=== PATIENT | male | born 1980 | race Caucasian/White ===

== ENCOUNTER 2018-06-21 15:29 | Emergency (ER) | payer BC ==
--- NOTE | 2018-06-21 16:03 | EDM.PDOC ---
ED HPI GENERAL MEDICAL PROBLEM - General Chief Complaint: Lower Extremity Injury/Pain Stated Complaint: KNEE INJURY Time Seen by Provider: 06/21/18 15:30 Source of Information: Reports: Patient History Limitations: Reports: No Limitations - History of Present Illness INITIAL COMMENTS - FREE TEXT/NARRATIVE: HISTORY AND PHYSICAL: History of present illness: Patient is a 38-year-old male presents to the ED today with concern of right knee pain/injury that occurred an hour prior to arrival to the ED. Patient states he was walking when his knee twisted slightly and since then he has had 9 out of 10 pain. He denies hitting his head or loss of consciousness. He denies any prior injury to the knee. He has not taken anything [id number] for her symptoms. Patient denies fever, chills, chest pain, shortness of breath, or cough. Denies headache, neck stiff ness, change in vision, syncope, or near syncope. Denies nausea, vomiting, abdominal pain, diarrhea, constipation, or dysuria. Has not noted any blood in urine or stool. Patient has been eating and drinking appropriately. Review of systems: As per history of present illness and below otherwise all systems reviewed and negative. Past medical history: As per history of present illness and as reviewed below otherwise noncontributory. Surgical history: As per history of present illness and as reviewed below otherwise noncontributory. Social history: See social history for further information Family history: As per history of present illness and as reviewed below otherwise noncontributory. Physical exam: General: Patient is alert, oriented, and in no acute distress. Patient sitting comfortably on exam table. HEENT: Atraumatic, normocephalic, pupils equal and reactive bilaterally, negative for conjunctival pallor or scleral icterus, mucous membranes moist, TMs normal bilaterally, throat clear, neck supple, nontender, trachea midline. No drooling or trismus noted. No meningeal signs. No hot potato voice noted. Lungs: Clear to auscultation, breath sounds equal bilaterally, chest nontender. Heart: S1S2, regular rate and rhythm without overt murmur Abdomen: Soft, nondistended, nontender. Negative for masses or hepatosplenomegaly. Negative for costovertebral tenderness. Pelvis: Stable nontender. Genitourinary: Deferred. Rectal: Deferred. Skin: Intact, warm, dry. No lesions or rashes noted. Extremities: Negative for cords or calf pain. Neurovascular unremarkable. Exam is limited due to pain. Range of motion of knee is limited due to pain. Right knee is moderately edematous, more at the medial join line. Dorsalis pedis and posterior tibial pulses are grossly intact extremity. Capillary refill less than 2 seconds. Neuro: Awake, alert, oriented. Cranial nerves II through XII unremarkable. Cerebellum unremarkable. Motor and sensory unremarkable throughout. Exam nonfocal. Notes: Dr. Castelan verbally involved in patients care. Do not have the capability of an orthopedic provider through our hospital today. Call made to [facility] electronic system engineer orthopedic surgeon, Dr. Ayala. Discussed patient in detail with Dr. Ayala. Per Dr. Ayala, requests knee immobilizer and nonweightbearing and to follow up with Dr. Ayala Monday or Monday next week. Information for Dr. Ayala's clinic provided to patient. Will also generate referral to our orthopedic provider. Voices understanding and is agreeable to plan of care. Denies any further questions or concerns at this time. Diagnostics: Knee XR Therapeutics: Toradol, Crutches, Knee immobilizer Prescription: [place] #20 Impression: Mildly displaced intra-articular tibial plateau fracture Plan: 1. Take medication as prescribed for moderate to severe pain. You can alternate ibuprofen and Tylenol as directed for mild to moderate pain. Remain not weight bearing as discussed. 2. Rest, ice, elevate the affected extremity. You can apply ice 15 minutes on, 15 minutes off. 3. Follow up with the Orthopedic provider as discussed. Return to the ED as needed and as discussed. Definitive disposition and diagnosis as appropriate pending reevaluation and review of above. Right Knee Pain Score (Numeric/FACES): 9 - Related Data Allergies Allergy/AdvReac Type Severity Reaction Status Date / Time No Known Allergies Allergy Verified 06/21/18 15:47 Home Meds: Home Meds Citalopram Hydrobromide [Celexa] 10 mg PO DAILY 06/21/18 [History] Past Medical History - Past Health History Medical/Surgical History: Denies Medical/Surgical History - Past Surgical History Musculoskeletal Surgical History: Reports: Other (See Below) Other Musculoskeletal Surgeries/Procedures:: right leg surgery Social & Family History - Family History Family Medical History: Noncontributory - Tobacco Use Smoking Status *Q: Never Smoker - Recreational Drug Use Recreational Drug Use: No Review of Systems - Review of Systems Review Of Systems: ROS reveals no pertinent complaints other than HPI. ED EXAM, GENERAL - Physical Exam Exam: See Below (See dictation) Course - Vital Signs Last Recorded V/S: Last Vital Signs Temp 35.7 C 06/21/18 15:45 Pulse 65 06/21/18 15:45 Resp 18 06/21/18 15:45 BP 145/83 H 06/21/18 15:45 Pulse Ox 98 06/21/18 15:45 - Orders/Labs/Meds Meds: Medications Discontinued Medications Generic Name Dose Route Start Last Admin Trade Name Freq PRN Reason Stop Dose Admin Ketorolac Tromethamine 60 mg 06/21/18 16:04 06/21/18 16:14 Toradol IM 06/21/18 16:05 60 mg ONETIME ONE Administration Departure - Departure Time of Disposition: 16:55 Disposition: Home, Self-Care 01 Clinical Impression: Tibial plateau fracture Qualifiers: Encounter type: initial encounter Fracture type: closed Laterality: right Qualified Code(s): S82.141A - Displaced bicondylar fracture of right tibia, initial encounter for closed fracture - Discharge Information Referrals: Carlos Galicia MD [Primary Care Provider] - Forms: ED Department Discharge Additional Instructions: The following information is given to patients seen in the emergency department who are being discharged to home. This information is to outline your options for follow-up care. We provide all patients seen in our emergency department with a follow-up referral. The need for follow-up, as well as the timing and circumstances, are variable depending upon the specifics of your emergency department visit. If you don't have a primary care physician on staff, we will provide you with a referral. We always advise you to contact your personal physician following an emergency department visit to inform them of the circumstance of the visit and for follow-up with them and/or the need for any referrals to a consulting specialist. The emergency department will also refer you to a specialist when appropriate. This referral assures that you have the opportunity for follow-up care with a specialist. All of these measure are taken in an effort to provide you with optimal care, which includes your follow-up. Under all circumstances we always encourage you to contact your private physician who remains a resource for coordinating your care. When calling for follow-up care, please make the office aware that this follow-up is from your recent emergency room visit. If for any reason you are refused follow-up, please contact the [facility] Emergency Department at and asked to speak to the emergency department charge nurse. [facility] [address] [place] [address] [facility] [address] [place] [id number] [facility] [address] [place] [address], [address] [place] [address] [facility]-Dr. Ayala [address] [place] [address] 1. Take medication as prescribed for moderate to severe pain. You can alternate ibuprofen and Tylenol as directed for mild to moderate pain. Remain not weight bearing as discussed. 2. Rest, ice, elevate the affected extremity. You can apply ice 15 minutes on, 15 minutes off. 3. Follow up with the Orthopedic provider as discussed. Return to the ED as needed and as discussed.
[2018-06-21] MEDS ORDERED: Ketorolac 60 MG/2 ML SDV IM ONE (16:04)
--- NOTE | 2018-06-21 16:38 | CR ---
EXAMINATION: Right knee HISTORY: Injury COMPARISON: None TECHNIQUE: 3 views FINDINGS: There is a vertical mildly displaced intra-articular lateral tibial plateau fracture. There is a small to moderate lipoma hemarthrosis. The remaining osseous structures and joint spaces appear grossly preserved. Bone mineralization is otherwise normal. IMPRESSION: Mildly displaced vertical intra-articular lateral tibial plateau fracture.
== END 2018-06-21 17:19 | disposition home or self-care (01) ==
LOC: MW.ED 15:29
DX: S82.141A Displaced bicondylar fracture of right tibia, initial encounter for closed fracture (principal); Z79.899 Other long term (current) drug therapy; X50.9XXA Other and unspecified overexertion or strenuous movements or postures, initial encounter
CPT/HCPCS: 73562; 96372; 99283; J1885

== ENCOUNTER 2018-06-25 11:58 | Day surgery (SDC) | payer BC ==
[~2018-06-25 11:58] MED LIST: Lactated Ringers 1,000 ML IV SCH; ceFAZolin 2 GM in Premix Bag 1 BAG IV SCH
--- NOTE | 2018-06-25 12:53 | PCM.PREANE ---
Preanesthetic Assessment - Anesthesia/Transfusion/Family Hx Anesthesia History: Prior Anesthesia Without Reaction Family History of Anesthesia Reaction: No Transfusion History: No Prior Transfusion(s) Intubation History: Unknown - Review of Systems General: No Symptoms Pulmonary: No Symptoms Cardiovascular: No Symptoms Gastrointestinal: No Symptoms Neurological: No Symptoms Other: Reports: None - Physical Assessment O2 Sat by Pulse Oximetry: 96 Respiratory Rate: 18 Vital Signs: Last Vital Signs Temp 36.6 C 06/25/18 12:15 Pulse 75 06/25/18 12:15 Resp 18 06/25/18 12:15 BP 139/91 H 06/25/18 12:15 Pulse Ox 96 06/25/18 12:15 Height: 1.88 m Weight: 81.647 kg ASA Class: 2 Mental Status: Alert & Oriented x3 Airway Class: Mallampati = 2 Dentition: Reports: Normal Dentition, [place](s) (x1 upper left) Thyro-Mental Finger Breadths: 3 Mouth Opening Finger Breadths: 3 ROM/Head Extension: Full Lungs: Clear to Auscultation, Normal Respiratory Effort Cardiovascular: Regular Rate, Regular Rhythm - Allergies Allergies/Adverse Reactions: Allergies Allergy/AdvReac Type Severity Reaction Status Date / Time No Known Allergies Allergy Verified 06/22/18 16:22 - Blood Blood Available: No - Anesthesia Plan Pre-Op Medication Ordered: None - Acknowledgements Anesthesia Type Planned: General Anesthesia Pt an Appropriate Candidate for the Planned Anesthesia: Yes Alternatives and Risks of Anesthesia Discussed w Pt/Guardian: Yes Pt/Guardian Understands and Agrees with Anesthesia Plan: Yes PreAnesthesia Questionnaire - Past Health History Medical/Surgical History: Denies Medical/Surgical History HEENT History: Reports: Other (See Below) Other HEENT History: wears glasses/contacts, has upper incisor dental implant Gastrointestinal History: Reports: Other (See Below) Other Gastrointestinal History: occasional heartburn- takes TUMS Musculoskeletal History: Reports: Fracture, Neck Pain, Chronic Other Musculoskeletal History: hx of fx vertebrate in neck, hx of open fx of right leg. Rt. tibial plateau fx. at present time. Neurological History: Reports: Headaches, Chronic Other Neuro History: due to "floating fragments" in neck Psychiatric History: Reports: Anxiety - Past Surgical History Head Surgeries/Procedures: Reports: None Musculoskeletal Surgical History: Reports: Other (See Below) Other Musculoskeletal Surgeries/Procedures:: debridement of open fx of right leg (no hardware) - 17 years ago - SUBSTANCE USE Smoking Status *Q: Former Smoker Tobacco Use Within Last Twelve Months: No Recreational Drug Use History: No - HOME MEDS Home Medications: Home Meds Citalopram Hydrobromide [Celexa] 20 mg PO DAILY 06/21/18 [History] Ibuprofen 800 mg PO ASDIRECTED PRN 06/22/18 [History] oxyCODONE HCl/Acetaminophen [Oxycodone-Acetaminophen 5-325] 1 - 2 tab PO Q4H PRN 06/22/18 [History] - CURRENT (IN HOUSE) MEDS Current Meds: Current Medications Cefazolin Sodium/Dextrose 2 gm (/ Premix) 50 mls @ 100 mls/hr IV ONCALL MARSHA Lactated Ringer's (Ringers, Lactated) 1,000 mls @ 100 mls/hr IV ASDIRECTED [facility] Last Admin: 06/25/18 12:20 Dose: 100 mls/hr Oxycodone/Acetaminophen (Percocet 325-5 Mg) 1 - 2 tab PO Q4H PRN PRN Reason: Pain
[2018-06-25] MEDS ORDERED: Bupivacaine 0.5% 30 ML SDV ONE (13:44)
[2018-06-25] MEDS ORDERED: Midazolam 1 MG/ML 2 ML SDV ONE (13:45)
[2018-06-25] MEDS ORDERED: fentaNYL 250 MCG/5 ML SDV ONE (13:45)
[2018-06-25] MEDS ORDERED: Propofol 200 MG/20 ML SDV ONE (13:45)
[2018-06-25] MEDS ORDERED: Rocuronium 100 MG/10 ML Syringe ONE (14:31)
[2018-06-25] MEDS ORDERED: Neostigmine Methylsulfate 1 MG/ML 5 ML Syringe ONE (14:31)
[2018-06-25] MEDS ORDERED: Glycopyrrolate 0.2 MG/ML SDV ONE (14:31)
[2018-06-25] MEDS ORDERED: HYDROmorphone 2 MG/ML Syringe ONE ×2 (15:15→16:54)
[2018-06-25] MEDS ORDERED: Sodium Chloride 0.9% 10 ML Syringe FLUSH PRN (16:26)
[2018-06-25] MEDS ORDERED: Ondansetron 4 MG/2 ML SDV IVPUSH PRN (16:26)
[2018-06-25] MEDS ORDERED: Sodium Chloride 0.9% 2.5 ML Syringe FLUSH PRN (16:26)
[2018-06-25] MEDS ORDERED: HYDROmorphone 1 MG/ML Syringe IVPUSH PRN (16:26)
[2018-06-25] MEDS ORDERED: Lactated Ringers 1,000 ML IV SCH (16:30)
[2018-06-25] MEDS ORDERED: Acetaminophen/oxyCODONE 325-5 MG Tab PO PRN (16:35)
--- NOTE | 2018-06-25 16:40 | PCM.OPNOTE ---
- General Post-Op/Procedure Note Date of Surgery/Procedure: 06/25/18 Operative Procedure(s): ORIF right tibia plateau Post-Op Diagnosis: R lateral tibial plateau fracture Anesthesia Technique: General ET Tube Primary Surgeon: Marii Dacosta Church Secretary: Shayy Vital Church Secretary: Kasia Zaragoza in mLs: 10 Condition: Good Free Text/Narrative:: tt=90 min #[id number]
[2018-06-25] MEDS ORDERED: Aluminum Hydroxide/Magnesium Hydroxide/Simethicone Susp 30 ML Cup PO PRN (16:50)
[2018-06-25] MEDS ORDERED: diphenhydrAMINE 25 MG Cap PO PRN (16:50)
[2018-06-25] MEDS: fentaNYL 100 MCG/2 ML SDV IVPUSH PRN ×2 (16:57→17:06)
[2018-06-25] MEDS: HYDROmorphone 2 MG/ML SDV IVPUSH ONE ×2 (17:02→17:14)
--- NOTE | 2018-06-25 17:41 | PCM.POSTAN ---
POST ANESTHESIA ASSESSMENT - MENTAL STATUS Mental Status: Alert, Oriented - VITAL SIGNS Pulse Rate: 88 SaO2: 98 Resp Rate: 15 Blood Pressure: 144/78 - RESPIRATORY Respiratory Status: Respiratory Rate WNL, Airway Patent, O2 Saturation Stable - CARDIOVASCULAR CV Status: Pulse Rate WNL, Blood Pressure Stable - GASTROINTESTINAL GI Status: No Symptoms - POST OP HYDRATION Hydration Status: Adequate & Stable
[2018-06-25] MEDS: Acetaminophen/oxyCODONE 325-5 MG Tab PO PRN (18:52)
[2018-06-25] MEDS: Ketorolac 30 MG/ML SDV IVPUSH SCH ×2 (18:57→22:28)
[2018-06-25] MEDS: ceFAZolin 2 GM in Premix Bag 1 BAG IV SCH (22:31)
--- NOTE | 2018-06-25 23:52 | OR ---
SURGEON: Marii Dacosta MD DATE OF PROCEDURE: 06/25/2018 PREOPERATIVE DIAGNOSIS: Right lateral tibial plateau fracture, split depression. POSTOPERATIVE DIAGNOSIS: Right lateral tibial plateau fracture, split depression. PROCEDURE: Open reduction and internal fixation, right lateral tibial plateau fracture. ASSISTANTS: LEXUS Aponte and Kasia Zaragoza PA-C. REASON AND ROLE FOR ASSISTANTS: Retraction, prepping, draping, positioning, and closure assistance. ANESTHESIA: General. ESTIMATED BLOOD LOSS: 10 mL. TOURNIQUET TIME: 90 minutes. COMPLICATIONS: None. DVT PROPHYLAXIS: PAS boot to the nonoperative leg. IMPLANTS USED: Linh 3-hole stainless steel proximal tibia locking plate with combination of 3.5 mm locking and nonlocking screws. BRIEF HISTORY: Andreas is a 38-year-old male who sustained a fall from ground height. X-rays in the emergency room showed a split depression fracture of the right lateral tibial plateau. He was evaluated in clinic. A CT scan was obtained. Due to the amount of depression and unstable nature of the injury, I did recommend surgical treatment. Risks and goals of the procedure were discussed with the patient and were documented preoperatively. He agreed to proceed. DESCRIPTION OF PROCEDURE: The patient was properly identified and brought to the operating room. He was transferred from the OR cart and placed on the operating room table in supine position. General anesthesia was administered. After adequate anesthesia was obtained, a well-padded tourniquet was applied to the right lower extremity. The right lower extremity was then prepped in standard fashion using ChloraPrep solution. It was then sterilely draped. A time-out was performed to ensure correct site and procedure. Preoperative antibiotics were given. The surgical site had been marked preoperatively. An Esmarch was used to exsanguinate the right lower extremity and the tourniquet was inflated to 250 mmHg. An incision was made over the lateral aspect of the proximal tibia in a hockey- stick type fashion just inferior to the joint line. Subcutaneous tissues were incised along with the fascia. The fracture was identified in the proximal tibia. There was mild comminution at the fracture site and the patella tendon attachment appeared intact. I did elevate the lateral meniscus from the bone. This was tagged with 0 Ethibond suture. A large hemarthrosis was evacuated. The knee was then copiously irrigated with saline solution. A quarter-inch osteotome was then used to make a small window at the base of the lateral fragment. A bone tamp was then introduced into this window. A mallet was then used to advance the tamp toward the articular surface. This was performed using direct C-arm imaging. I was able to bring the articular pieces proximally. To backfill the void, I did use 15 mL of crushed cancellous chips. Once there was adequate congregation of the joint surface, I elected to proceed with placement of the plate. The lateral fragment had shifted slightly inferiorly. A pointed bone pusher was then used to elevate the lateral fragment. This was held in a reduced position as a K-wire was passed proximally. This provided good provisional fixation. The plate was then placed along the lateral aspect of the tibia. It contoured nicely to the bone. An additional K-wire was passed through the plate for provisional fixation. Two locking screws were then placed proximally. A nonlocking screw was placed distally. This provided good fixation of the fracture and the joint surface appeared to be adequately restored. I was able to use a [place] through the lateral window to the joint at the point where the meniscus was elevated. I was able to palpate the joint surface. The remainder of the screws were placed into the plate. I then elected to use 3 mL of HydroSet to provide additional bone healing properties. The HydroSet syringe was placed into the metaphyseal void and 3 mL were injected. The wound was then copiously irrigated with saline solution along with the knee. Tourniquet was then deflated. No excess bleeding was noted. The lateral meniscus was attached to the plate using a suture. The fascial layer was then loosely reapproximated using 0 Vicryl. Subcutaneous tissues were closed with 2-0 Vicryl and the skin was closed with matt. Xeroform gauze was placed over the wound and a bulky dressing was applied. He was then placed back into his knee immobilizer. He was awakened from his anesthetic and transferred back to the operating room cart. He was brought to the recovery room in stable condition. All needle and sponge counts were correct. KHADIJAH / RABIA /[id number]
[2018-06-26] MEDS: Ketorolac 30 MG/ML SDV IVPUSH SCH (04:13)
[2018-06-26] MEDS: ceFAZolin 2 GM in Premix Bag 1 BAG IV SCH (06:27)
[2018-06-26] MEDS: Acetaminophen/oxyCODONE 325-5 MG Tab PO PRN (06:32)
--- NOTE | 2018-06-26 08:37 | PCM.SURGPN ---
- General Info Date of Service: 06/26/18 (0730) Date of Surgery/Procedure: 06/25/18 POD#: 1 Post-Op Diagnosis: s/p ORIF RIGHT lateral tibial plateau Admission Diagnosis/Problem: Tibial plateau fracture, right Functional Status: Reports: Pain Controlled, Tolerating Diet, Urinating - Review of Systems General: Reports: No Symptoms. Denies: Fever HEENT: Reports: No Symptoms Pulmonary: Reports: No Symptoms. Denies: Shortness of Breath Cardiovascular: Reports: No Symptoms. Denies: Chest Pain Gastrointestinal: Reports: No Symptoms. Denies: Nausea, Vomiting Musculoskeletal: Reports: Leg Pain (post surgical pain) Skin: Reports: No Symptoms Neurological: Reports: No Symptoms. Denies: Trouble Speaking Psychiatric: Reports: No Symptoms Systems Review Comment:: Reports doing well overall. Rested comfortably overnight. No N/V. Tolerated supper last evening without N/V. Voiding. Pain controlled with Percocet, and had dose of dilaudid before HS. Has utilized [facility] ice therapy overnight. Denies numbness/tingling to RLE. - Patient Data Vitals - Most Recent: Last Vital Signs Temp 36.9 C 06/26/18 07:00 Pulse 70 06/26/18 07:00 Resp 16 06/26/18 07:00 BP 127/78 06/26/18 07:00 Pulse Ox 97 06/26/18 07:00 Weight - Most Recent: 81.647 kg I&O - Last 24 Hours: Intake & Output 06/25/18 06/26/18 06/26/18 22:59 06:59 14:59 Intake Total 2049 1692 Output Total 550 Balance 2049 1142 Med Orders - Current: Current Medications Al Hydroxide/Mg Hydroxide (Mag-Al Plus) 30 ml PO Q4H PRN PRN Reason: Indigestion Citalopram Hydrobromide (Celexa) 20 mg PO DAILY MARSHA Diphenhydramine HCl (Benadryl) 25 - 50 mg PO Q6H PRN PRN Reason: Itching Hydromorphone HCl (Dilaudid) 0.5 - 1 mg IVPUSH Q3H PRN PRN Reason: Pain Last Admin: 06/25/18 21:49 Dose: 1 mg Lactated Ringer's (Ringers, Lactated) 1,000 mls @ 100 mls/hr IV ASDIRECTED MARSHA Last Admin: 06/25/18 18:58 Dose: 100 mls/hr Ondansetron HCl (Zofran) 4 mg IVPUSH Q6H PRN PRN Reason: Nausea/Vomiting Oxycodone/Acetaminophen (Percocet 325-5 Mg) 1 - 2 tab PO Q4H PRN PRN Reason: Pain Last Admin: 06/26/18 06:32 Dose: 2 tab Oxycodone/Acetaminophen (Percocet 325-5 Mg) 1 - 2 tab PO Q4H PRN PRN Reason: Pain Sodium Chloride (Saline Flush) 10 ml FLUSH ASDIRECTED PRN PRN Reason: Keep Vein Open Sodium Chloride (Saline Flush) 2.5 ml FLUSH ASDIRECTED PRN PRN Reason: Keep Vein Open Discontinued Medications Bupivacaine HCl (Marcaine 0.5%) Confirm Administered Dose 30 ml .ROUTE .STK-MED ONE Stop: 06/25/18 13:45 Fentanyl (Sublimaze) Confirm Administered Dose 250 mcg .ROUTE .STK-MED ONE Stop: 06/25/18 13:46 Fentanyl (Sublimaze) 50 mcg IVPUSH Q5M PRN PRN Reason: Pain (severe 7-10) Stop: 06/26/18 14:34 Last Admin: 06/25/18 17:06 Dose: 50 mcg Glycopyrrolate (Robinul) Confirm Administered Dose 0.4 mg .ROUTE .STK-MED ONE Stop: 06/25/18 14:32 Hydromorphone HCl (Dilaudid) 2 mg IVPUSH ONETIME ONE Stop: 06/25/18 14:30 Last Admin: 06/25/18 17:14 Dose: 1 mg Hydromorphone HCl (Dilaudid) Confirm Administered Dose 2 mg .ROUTE .STK-MED ONE Stop: 06/25/18 15:16 Hydromorphone HCl (Dilaudid) Confirm Administered Dose 2 mg .ROUTE .STK-MED ONE Stop: 06/25/18 16:55 Last Admin: 06/25/18 18:06 Dose: Not Given Cefazolin Sodium/Dextrose 2 gm (/ Premix) 50 mls @ 100 mls/hr IV ONCALL MARSHA Lactated Ringer's (Ringers, Lactated) 1,000 mls @ 100 mls/hr IV ASDIRECTED [facility] Last Admin: 06/25/18 12:20 Dose: 100 mls/hr Lidocaine HCl (Xylocaine-Mpf 1%) Confirm Administered Dose 5 mls @ as directed .ROUTE .STK-MED ONE Stop: 06/25/18 14:32 Cefazolin Sodium/Dextrose 2 gm (/ Premix) 50 mls @ 100 mls/hr IV Q8H [facility] Stop: 06/26/18 07:29 Last Admin: 06/26/18 06:27 Dose: 100 mls/hr Ketorolac Tromethamine (Toradol) 30 mg IVPUSH Q6H [facility] Stop: 06/26/18 05:00 Last Admin: 06/26/18 04:13 Dose: 30 mg Midazolam HCl (Versed 1 Mg/Ml) Confirm Administered Dose 2 mg .ROUTE .STK-MED ONE Stop: 06/25/18 13:46 Neostigmine Methylsulfate (Neostigmine) Confirm Administered Dose 5 mg .ROUTE .STK-MED ONE Stop: 06/25/18 14:32 Propofol (Diprivan 20 Ml) Confirm Administered Dose 200 mg .ROUTE .STK-MED ONE Stop: 06/25/18 13:46 Rocuronium [place] (Zemuron) Confirm Administered Dose 100 mg .ROUTE .STK-MED ONE Stop: 06/25/18 14:32 - Exam Wound/Incisions: Dressing Dry and Intact, No Drainage General: Alert, Oriented, Cooperative, No Acute Distress HEENT: Pupils Equal Lungs: Normal Respiratory Effort Cardiovascular: Regular Rate Extremities: No Pedal Edema, Other (surgical dressing dry and intact. Removed. Incision CDI with matt. No surrounding erythema.). No: Demond's Sign Skin: Warm, Dry Neurological: Normal Speech Psy/Mental Status: Alert, Normal Affect, Normal Mood Physical Findings Comment:: AT/EHL/gastroc 5/5 Sensation grossly intact to RLE. PP2+ No erythema or swelling surrounding incision site. - Problem List Review Problem List Initiated/Reviewed/Updated: Yes - My Orders Last 24 Hours: Active Orders 24 hr Category Date Time Status Communication Order [RC] PRN Care 06/25/18 16:26 Active Neurovascular Check [RC] Q2HR Care 06/25/18 16:26 Active Notify Provider Vital Signs [RC] ASDIRECTED Care 06/25/18 16:26 Active RT Incentive Spirometry [RC] Q1HWA Care 06/25/18 16:26 Active Ready for Discharge [RC] PER UNIT ROUTINE Care 06/26/18 08:31 Active Wound Care [RC] DAILY Care 06/25/18 16:26 Active PT Evaluation and Treatment [CONS] Routine Cons 06/25/18 16:26 Active Regular Diet [DIET] Diet 06/25/18 Dinner Active Acetaminophen/oxyCODONE [Percocet 325-5 MG] Med 06/25/18 08:00 Active 1 - 2 tab PO Q4H PRN Acetaminophen/oxyCODONE [Percocet 325-5 MG] Med 06/25/18 16:35 Active 1 - 2 tab PO Q4H PRN Alum Hydrox/Mag Hydrox/Simeth [Mag-Al Plus] Med 06/25/18 16:50 Active 30 ml PO Q4H PRN Citalopram [Celexa] Med 06/26/18 09:00 Active 20 mg PO DAILY HYDROmorphone [Dilaudid] Med 06/25/18 16:26 Active 0.5 - 1 mg IVPUSH Q3H PRN Lactated Ringers [Ringers, Lactated] 1,000 ml Med 06/25/18 16:30 Active IV ASDIRECTED Ondansetron [Zofran] Med 06/25/18 16:26 Active 4 mg IVPUSH Q6H PRN Sodium Chloride 0.9% [Saline Flush] Med 06/25/18 16:26 Active 10 ml FLUSH ASDIRECTED PRN Sodium Chloride 0.9% [Saline Flush] Med 06/25/18 16:26 Active 2.5 ml FLUSH ASDIRECTED PRN diphenhydrAMINE [Benadryl] Med 06/25/18 16:50 Active 25 - 50 mg PO Q6H PRN Convert IV to Saline Lock [OM.PC] PRN Oth 06/25/18 16:30 Ordered Convert IV to Saline Lock [OM.PC] PRN Oth 06/26/18 16:30 Ordered Ice Therapy [OM.PC] Routine Oth 06/25/18 16:26 Ordered Sequential Compression Device [OM.PC] Routine Oth 06/25/18 08:00 Ordered Medication Orders Al Hydroxide/Mg Hydroxide (Mag-Al Plus) 30 ml PO Q4H PRN PRN Reason: Indigestion Citalopram Hydrobromide (Celexa) 20 mg PO DAILY MARSHA Diphenhydramine HCl (Benadryl) 25 - 50 mg PO Q6H PRN PRN Reason: Itching Hydromorphone HCl (Dilaudid) 0.5 - 1 mg IVPUSH Q3H PRN PRN Reason: Pain Last Admin: 06/25/18 21:49 Dose: 1 mg Lactated Ringer's (Ringers, Lactated) 1,000 mls @ 100 mls/hr IV ASDIRECTED MARSHA Last Admin: 06/25/18 18:58 Dose: 100 mls/hr Ondansetron HCl (Zofran) 4 mg IVPUSH Q6H PRN PRN Reason: Nausea/Vomiting Oxycodone/Acetaminophen (Percocet 325-5 Mg) 1 - 2 tab PO Q4H PRN PRN Reason: Pain Last Admin: 06/26/18 06:32 Dose: 2 tab Admin: 06/25/18 18:52 Dose: 1 tab Oxycodone/Acetaminophen (Percocet 325-5 Mg) 1 - 2 tab PO Q4H PRN PRN Reason: Pain Sodium Chloride (Saline Flush) 10 ml FLUSH ASDIRECTED PRN PRN Reason: Keep Vein Open Sodium Chloride (Saline Flush) 2.5 ml FLUSH ASDIRECTED PRN PRN Reason: Keep Vein Open - Assessment Assessment (Free Text/Narrative):: ASSESSMENT : 1) s/p RIGHT tibial plateau fracture POD#1, he is doing well. No acute concerns and is anxious to be discharged home. He has crutches, and was proficient in complying with NWB RLE before surgery. Surgical dressing removed and AquaCell bandage applied. Rx written for Percocet refill for pain control. He is to be NWB with RLE in full extension. Rx written for Priti knee brace locked in full extension. After this is brought over from [employer], he may be discharged home.
[2018-06-26] MEDS ORDERED: Citalopram 20 MG Tab PO SCH (09:00)
--- NOTE | 2018-06-26 09:38 | PCM48HPAN ---
Post Anesthesia Note - EVALUATION WITHIN 48HRS OF ANESTHETIC Vital Signs in Normal Range: Yes Patient Participated in Evaluation: Yes Respiratory Function Stable: Yes Airway Patent: Yes Cardiovascular Function Stable: Yes Hydration Status Stable: Yes Pain Control Satisfactory: Yes Nausea and Vomiting Control Satisfactory: Yes Mental Status Recovered: Yes Pulse Rate: 88 Resp Rate: 16 Blood Pressure: 144/78
--- NOTE | 2018-06-26 14:55 | PCM.DCSUM1 ---
Discharge Summary - Hospital Course Free Text/Narrative:: document #[id number] - Discharge Data Discharge Date: 06/26/18 Discharge Disposition: Home, Self-Care 01 Condition: Good - Patient Summary/Data Operative Procedure(s) Performed: ORIF right tibia plateau Consults: Consultations 06/25/18 16:26 PT Evaluation and Treatment [CONS] Routine - Patient Instructions Diet: Usual Diet as Tolerated Activity: Apply Ice, Cough & Deep Breathe, Elevate Extremity, Non Weight Bearing Activity, Other: keep leg in extension at all times. [place] knee brace on at all times. Driving: Do Not Drive Showering/Bathing: No Tub Bathing/Swimming, May Shower in 3 Days Wound/Incision Care: Keep Operative Site/Wound Site Clean and Dry Notify Provider of: Fever, Increased Pain, Swelling and Redness, Drainage, Nausea and/or Vomiting - Discharge Plan Prescriptions/Med Rec: Acetaminophen/oxyCODONE [Percocet 325-5 MG] 1 - 2 tab PO Q4H PRN #60 tablet PRN Reason: Pain Home Medications: Home Meds Citalopram Hydrobromide [Celexa] 20 mg PO DAILY 06/21/18 [History] Ibuprofen 800 mg PO ASDIRECTED PRN 06/22/18 [History] oxyCODONE HCl/Acetaminophen [Oxycodone-Acetaminophen 5-325] 1 - 2 tab PO Q4H PRN 06/22/18 [History] Acetaminophen/oxyCODONE [Percocet 325-5 MG] 1 - 2 tab PO Q4H PRN #60 tablet [Rx] Patient Handouts: Acetaminophen; Oxycodone tablets, Tibial Plateau Fracture Treated With Open Reduction, Care After Referrals: Marii Dacosta MD [Physician] - 08/07/18 10:45 am Shayy Vital NP [Nurse Practitioner] - 07/05/18 10:20 am - Discharge Summary/Plan Comment DC Time >30 min.: No - Patient Data Vitals - Most Recent: Last Vital Signs Temp 36.9 C 06/26/18 07:00 Pulse 88 06/26/18 09:37 Resp 16 06/26/18 09:37 BP 144/78 H 06/26/18 09:37 Pulse Ox 97 06/26/18 07:00 Weight - Most Recent: 81.647 kg I&O - Last 24 hours: Intake & Output 06/25/18 06/26/18 06/26/18 22:59 06:59 14:59 Intake Total 2049 1691 Output Total 550 Balance 2049 1142 Med Orders - Current: Current Medications Discontinued Medications Al Hydroxide/Mg Hydroxide (Mag-Al Plus) 30 ml PO Q4H PRN PRN Reason: Indigestion Bupivacaine HCl (Marcaine 0.5%) Confirm Administered Dose 30 ml .ROUTE .STK-MED ONE Stop: 06/25/18 13:45 Citalopram Hydrobromide (Celexa) 20 mg PO DAILY MARSHA Last Admin: 06/26/18 09:07 Dose: 20 mg Diphenhydramine HCl (Benadryl) 25 - 50 mg PO Q6H PRN PRN Reason: Itching Fentanyl (Sublimaze) Confirm Administered Dose 250 mcg .ROUTE .STK-MED ONE Stop: 06/25/18 13:46 Fentanyl (Sublimaze) 50 mcg IVPUSH Q5M PRN PRN Reason: Pain (severe 7-10) Stop: 06/26/18 14:34 Last Admin: 06/25/18 17:06 Dose: 50 mcg Glycopyrrolate (Robinul) Confirm Administered Dose 0.4 mg .ROUTE .STK-MED ONE Stop: 06/25/18 14:32 Hydromorphone HCl (Dilaudid) 2 mg IVPUSH ONETIME ONE Stop: 06/25/18 14:30 Last Admin: 06/25/18 17:14 Dose: 1 mg Hydromorphone HCl (Dilaudid) Confirm Administered Dose 2 mg .ROUTE .STK-MED ONE Stop: 06/25/18 15:16 Hydromorphone HCl (Dilaudid) 0.5 - 1 mg IVPUSH Q3H PRN PRN Reason: Pain Last Admin: 06/25/18 21:49 Dose: 1 mg Hydromorphone HCl (Dilaudid) Confirm Administered Dose 2 mg .ROUTE .STK-MED ONE Stop: 06/25/18 16:55 Last Admin: 06/25/18 18:06 Dose: Not Given Cefazolin Sodium/Dextrose 2 gm (/ Premix) 50 mls @ 100 mls/hr IV ONCALL MARSHA Lactated Ringer's (Ringers, Lactated) 1,000 mls @ 100 mls/hr IV ASDIRECTED [facility] Last Admin: 06/25/18 12:20 Dose: 100 mls/hr Lidocaine HCl (Xylocaine-Mpf 1%) Confirm Administered Dose 5 mls @ as directed .ROUTE .STK-MED ONE Stop: 06/25/18 14:32 Lactated Ringer's (Ringers, Lactated) 1,000 mls @ 100 mls/hr IV ASDIRECTED [facility] Last Admin: 06/25/18 18:58 Dose: 100 mls/hr Cefazolin Sodium/Dextrose 2 gm (/ Premix) 50 mls @ 100 mls/hr IV Q8H [facility] Stop: 06/26/18 07:29 Last Admin: 06/26/18 06:27 Dose: 100 mls/hr Ketorolac Tromethamine (Toradol) 30 mg IVPUSH Q6H [facility] Stop: 06/26/18 05:00 Last Admin: 06/26/18 04:13 Dose: 30 mg Midazolam HCl (Versed 1 Mg/Ml) Confirm Administered Dose 2 mg .ROUTE .STK-MED ONE Stop: 06/25/18 13:46 Neostigmine Methylsulfate (Neostigmine) Confirm Administered Dose 5 mg .ROUTE .STK-MED ONE Stop: 06/25/18 14:32 Ondansetron HCl (Zofran) 4 mg IVPUSH Q6H PRN PRN Reason: Nausea/Vomiting Oxycodone/Acetaminophen (Percocet 325-5 Mg) 1 - 2 tab PO Q4H PRN PRN Reason: Pain Last Admin: 06/26/18 06:32 Dose: 2 tab Oxycodone/Acetaminophen (Percocet 325-5 Mg) 1 - 2 tab PO Q4H PRN PRN Reason: Pain Propofol (Diprivan 20 Ml) Confirm Administered Dose 200 mg .ROUTE .STK-MED ONE Stop: 06/25/18 13:46 Rocuronium [place] (Zemuron) Confirm Administered Dose 100 mg .ROUTE .STK-MED ONE Stop: 06/25/18 14:32 Sodium Chloride (Saline Flush) 10 ml FLUSH ASDIRECTED PRN PRN Reason: Keep Vein Open Sodium Chloride (Saline Flush) 2.5 ml FLUSH ASDIRECTED PRN PRN Reason: Keep Vein Open
--- NOTE | 2018-06-26 16:16 | CR ---
EXAMINATION: Right tibia HISTORY: Fracture COMPARISON: CT dated 06/22/2018 TECHNIQUE: 5 fluoroscopic images provided FINDINGS/IMPRESSION: Operative control films demonstrate screw and plate fixation of a lateral tibial plateau fracture. Otherwise postoperative soft tissue changes noted.
--- NOTE | 2018-06-27 02:34 | DISCH ---
DATE OF DISCHARGE: 06/26/2018 PRIMARY CARE PHYSICIAN: Carlos Galicia MD HISTORY: This 38-year-old male sustained a fall at home on June 21, 2018. He had immediate pain to his right knee with inability to bear weight. He was evaluated in the emergency room with x-ray diagnosing a closed fracture of the right tibial plateau. He has history of open distal third tibial fracture at age 14, treated with excisional debridement, but no internal fixation. He was evaluated in the orthopedic clinic on June 22, 2018 and scheduled for surgery as noted. He underwent ORIF of right lateral tibial plateau on June 25, [address] Marii Dacosta. No known surgical complications. After PACU, he was then transferred to [facility] for postop care. HOSPITAL COURSE: Postoperatively, he did well. Tolerating oral medications without nausea or vomiting. Tolerating oral food and fluids without nausea or vomiting. Surgical dressings clean, dry, and intact. This was removed on postop day 1 and large Aquacel dressing was applied. Incision clean, dry, and intact and well approximated with the use of matt. Minimal surrounding inflammation. No surrounding erythema. Neurovascular exam was normal. He was placed in a straight leg immobilizer after surgery with transition into a [place] knee brace locked in full extension on day of discharge. Polar ice therapy utilized overnight. Vital signs stable. Afebrile during hospitalization. Antibiotic coverage included Ancef 2 g for a total of 24-hour coverage. On postop day 1, he was ready to be discharged home. DISCHARGE MEDICATION: Percocet 5/325 mg 1 to 2 tablets p.o. q.4 hours p.r.n. DISCHARGE INSTRUCTIONS: Followup appointment scheduled for 2 weeks for suture removal, then at 6 weeks. He is to be nonweightbearing with [place] brace locked in full extension at all times. Elevate surgical extremity. Apply ice with use of Polar Care therapy to minimize swelling. Return to or call clinic with acute concerns or questions. HAILEY / RABIA /[phone]
== END 2018-06-26 10:00 | disposition home or self-care (01) ==
LOC: MW.SDS 11:58 → EDSTATUS 16:00 → MW.MS 16:47 → MW.SDS 06-26 10:00
PROVIDERS: ATTEND Orthopaedic Surgery
DX: S82.121A Displaced fracture of lateral condyle of right tibia, initial encounter for closed fracture (principal); F41.9 Anxiety disorder, unspecified; W19.XXXA Unspecified fall, initial encounter; Z79.899 Other long term (current) drug therapy
CPT/HCPCS: 27535; 97161; A9270; J0690; J1170; J1885; J2001; J2250; J2704; J3010; J3490; J7120; C1713; C1776